=== PATIENT | male | born 1950 | race Caucasian/White ===

== ENCOUNTER 2018-04-03 08:59 | Day surgery (SDC) | payer OTHER, MEDICARE ==
--- NOTE | 2018-04-01 09:45 | GHP ---
DATE OF ADMISSION: 04/03/2018 CHIEF COMPLAINT: Right inguinal hernia. HISTORY OF PRESENT ILLNESS: This is a 68-year-old male who presents for surgical evaluation of a new right inguinal hernia. PAST MEDICAL HISTORY: None. PAST SURGICAL HISTORY: Previous hernia surgery. FAMILY HISTORY: Breast cancer. SOCIAL HISTORY: This patient is a nonsmoker and drinks alcohol daily. MEDICATIONS: None. ALLERGIES: No known drug allergies. REVIEW OF SYSTEMS: Ten-point review of systems was reviewed and was negative, aside for what is in t he HPI. PHYSICAL EXAM: GENERAL: Well-appearing, well-dressed, 68-year-old male in no acute distress. HEENT : Pupils are equal and round. Eyes are anicteric, normocephalic, atraumatic. No gross hearing defi cit. Mucous membranes moist. NECK: Supple, nontender without masses. CARDIAC: Regular rate and r hythm, no clicks, murmurs, or rubs. CHEST: Clear to auscultation bilaterally. No increased work of breathing. ABDOMEN: Soft, nontender, reducible right inguinal hernia. : Normal. MUSCULOSKELET AL: Full range of motion, full pulses. PSYCHIATRIC: Appropriate mood and affect. NEUROLOGIC: Luz Marina rt and oriented x4. ASSESSMENT/PLAN: This is a healthy 68-year-old male with a new right inguinal hernia repair. We dis cussed all risks and options. Risks of surgery include, but are not limited to infection, bleeding, need for open procedure, damage to surrounding structures, including spermatic cord and bowel, heart attack, and . Patient understands and wished to proceed. We will plan for a laparoscopic right inguinal hernia repair with mesh. /[id number]/MODL
[2018-04-03] MEDS ORDERED: ceFAZolin 2 GM/DEXTROSE 100 ML IV ONE (09:12)
[2018-04-03] MEDS ORDERED: LR 1,000 ML IV ONE (09:13)
--- NOTE | 2018-04-03 09:14 | PDHPUP ---
History & Physical Update H&P update statement: This history and physical update is based on an assessment of the patient which was completed after admission or registration (within 24 hours), but prior to the surgery/procedure. H&P update: H&P reviewed & patient examined, no change in patient's condition since H&P completed
[2018-04-03] MEDS ORDERED: LIDOCAINE 1% 2 ML INJ ID PRN (09:34)
--- NOTE | 2018-04-03 10:11 | PDANEPAE ---
ANE Past Medical History - Cardiovascular History Hx Hypertension: No Hx Arrhythmias: No Hx Chest Pain: No Hx Coronary Artery / Peripheral Vascular Disease: No Hx CHF / Valvular Disease: No Hx Palpitations: No - Pulmonary History Hx COPD: No Hx Asthma/Reactive Airway Disease: No Hx Recent Upper Respiratory Infection: No Hx Oxygen in Use at Home: No Hx Sleep Apnea: No Sleep Apnea Screening Result - Last Documented: Negative - Neurologic History Hx Cerebrovascular Accident: No Hx Seizures: No Hx Dementia: No - Endocrine History Hx Diabetes: No - Renal History Hx Renal Disorders: No - Liver History Hx Hepatic Disorders: No - Neurological & Psychiatric Hx Hx Neurological and Psychiatric Disorders: No - Cancer History Hx Cancer: No - Congenital Disorder History Hx Congenital Disorders: No - GI History Hx Gastrointestinal Disorders: No - Other Health History Other Health History: MISSING TEETH - Chronic Pain History Chronic Pain: Yes (RT ING HERNIA) - Surgical History Prior Surgeries: LT ING HERNIA. TONSILLECTOMY ANE Review of Systems Review of Systems: - Exercise capacity METS (RN): 4 METS ANE Patient History - Allergies Allergies/Adverse Reactions: No Known Allergies Allergy (Unverified 04/01/18 09:07) - Home Medications Home Medications: NK [No Known Home Meds] 04/02/18 [Last Taken Unknown] - NPO status NPO Since - Liquids (Date): 04/03/18 NPO Since - Liquids (Time): 07:00 NPO Since - Solids (Date): 04/02/18 NPO Since - Solids (Time): 22:00 - Smoking Hx Smoking Status: Never smoked - Family Anes Hx Family Hx Anesthesia Complications: NEG ANE Labs/Vital Signs - Vital Signs Blood Pressure: 138/88 Heart Rate: 68 Respiratory Rate: 18 O2 Sat (%): 95 Height: 180.34 cm Weight: 74.843 kg ANE Physical Exam - Airway Mallampati Score: Class 2 - ASA Status ASA Status: II ANE Anesthesia Plan Anesthesia Plan: general endotracheal anesthesia
[2018-04-03] MEDS ORDERED: MIDAZOLAM 2 MG/2 ML VIAL ONE (10:16)
[2018-04-03] MEDS ORDERED: fentaNYL 100 MCG/2 ML INJ ONE (10:17)
[2018-04-03] MEDS ORDERED: BUPIVACAINE 0.25% 10 ML SDV ONE (10:17)
[2018-04-03] MEDS ORDERED: PROPOFOL 200 MG/20 ML VIAL ONE (10:17)
[2018-04-03] MEDS ORDERED: ROCURONIUM 50 MG/5 ML VIAL ONE (10:18)
[2018-04-03] MEDS ORDERED: BUPIVACAINE 0.5% 30 ML SDV ONE (10:18)
[2018-04-03] MEDS ORDERED: METOCLOPRAMIDE 10 MG/2 ML VIAL ONE (10:18)
[2018-04-03] MEDS ORDERED: ONDANSETRON 4 MG/2 ML VIAL ONE (10:18)
--- NOTE | 2018-04-03 11:30 | POSTOPPROG ---
Post Op Note Date of Operation: 04/03/18 Surgeon: Jalen To Warehouse Shipper: Christa Anesthesiologist: Alex Anesthesia: GET(General Endotracheal) Pre-op Diagnosis: RIH Post-op Diagnosis: same Indication: same Procedure: Lap RIH repair Findings: R direct inguinal hernia Inf/Abcess present in the surg proc area at time of surgery?: No Depth: Deep Incisional (Fascial) EBL: Minimal
[2018-04-03] MEDS ORDERED: DEXAMETHASONE 4 MG/ML VIAL IVP PRN (11:32)
[2018-04-03] MEDS ORDERED: fentaNYL 100 MCG/2 ML INJ IVP PRN (11:32)
[2018-04-03] MEDS ORDERED: PROMETHAZINE HCL 25 MG/ML INJ IVP PRN (11:32)
[2018-04-03] MEDS ORDERED: NALOXONE HCL 0.4 MG/ML INJ IVP PRN (11:32)
[2018-04-03] MEDS ORDERED: LR 500 ML IV PRN (11:32)
--- NOTE | 2018-04-03 11:33 | POSTANESTH ---
Post Anesthetic Evaluation Cardiovascular Status: Normal, Stable Respiratory Status: Normal, Stable Level of Consciousness/Mental Status: Can Participate in Eval Pain Control: Adequate, Prn Tx Ordered Nausea/Vomiting Control: Adequate, Prn Tx Ordered Complications Possibly Related to Anesthesia: None Noted
[2018-04-03] MEDS ORDERED: HYDROCODONE/APAP 5/325 TAB ONE (13:10)
[2018-04-03] MEDS ORDERED: HYDROCODONE/APAP 5/325 TAB PO PRN (13:36)
[2018-04-03 14:15] VITALS: BP 106/74
--- NOTE | 2018-04-04 04:51 | GOP ---
DATE OF OPERATION: 04/03/2018 SURGEON: Jalen To MD DOOR MACHINE OPERATOR: Betsey Goodwin NP. ANESTHESIOLOGIST: Dr. Johnson. PREOPERATIVE DIAGNOSIS: Recurrent right inguinal hernia. POSTOPERATIVE DIAGNOSIS: Recurrent right inguinal hernia. PROCEDURE PERFORMED: Laparoscopic repair of recurrent right inguinal hernia. FINDINGS: The patient was found to have a moderate indirect right inguinal hernia. ESTIMATED BLOOD LOSS: Negligible. DESCRIPTION OF PROCEDURE: The patient was taken to the operating room where he received satisfactory general endotracheal anesthesia by Dr. Johnson. He was placed in supine position, prepped and draped in the usual sterile fashion. An infraumbilical incision was made through his previous old incision . Dissection was carried down to the rectus sheath which was incised. A subfascial tunnel was devel oped in the preperitoneal space which was gently dissected free with a balloon dissector and was repl aced with a CO2 insufflation trocar. Two other trocars were placed in the lower abdomen under direct vision. Julio ligament was exposed on the right. The cord was mobilized on the right. An indirect sac was dissected off the cord structures. The sac was closed with multiple hemoclips and reduced. A Covidi en polyester mesh patch was introduced. A split patch was used, passing a limb around the cord struc tures. It was anchored in place, securing it to Julio ligament, to the lacunar ligament, to the ant erior abdominal wall and the lateral abdominal wall outside the internal ring. Hemostasis was assure d. The left side was examined with no evidence of any recurrent hernia on the left. Trocars were removed under direct vision. Trocar sites were closed with 0 Vicryl for the fascia, 4-0 Monocryl subcuticular stitch for the skin, and all layers infiltrated with 0.5% Marcaine. Pneumopre peritoneum was released. He tolerated the procedure well, was taken to the recovery room in good condition. COMPLICATIONS: None. /[id number]/MODL
== END 2018-04-03 13:59 | disposition home or self-care (01) ==
LOC: FSGY 08:59
PROVIDERS: ATTEND Surgery
PROC: 0YU54JZ Supplement Right Inguinal Region with Synthetic Substitute, Percutaneous Endoscopic Approach (ICD-10-PCS; principal; 2018-04-03 10:30)
DX: K40.91 Unilateral inguinal hernia, without obstruction or gangrene, recurrent (principal)
CPT/HCPCS: C1727; C1781; J2250; J2405; J2704; J2765; J3010